=== PATIENT | male | born 1960 | race Caucasian/White ===

== ENCOUNTER → 2020-04-08 12:07 | Outpatient (CLI) | payer BC, SELFPAY ==
[2020-04-09 21:32] LABS: Covid-19 Nasal PCR Sendout Lex NOT DETECTED
== END ==
PROVIDERS: PCP Family Medicine; Visit Provider Family Medicine
DX: Z03.818 Encounter for observation for suspected exposure to other biological agents ruled out (principal)
CPT/HCPCS: U0004

== ENCOUNTER → 2021-03-22 15:00 | Outpatient (POV) | payer BC, SELFPAY | PROVIDERS: Visit Provider Dermatology | DX: Z00.00 Encounter for general adult medical examination without abnormal findings (principal) ==

== ENCOUNTER → 2021-05-31 10:05 | Outpatient (POV) | payer BC, SELFPAY | PROVIDERS: Visit Provider Dermatology | DX: Z00.00 Encounter for general adult medical examination without abnormal findings (principal) ==

== ENCOUNTER → 2021-08-18 08:49 | Outpatient (CLI) | payer BC, SELFPAY | PROVIDERS: PCP Family Medicine; Visit Provider Nurse Practitioner | DX: Z20.822 Contact with and (suspected) exposure to COVID-19 (principal) | CPT/HCPCS: C9803; U0003; U0005 ==

== ENCOUNTER → 2022-01-18 14:19 | Outpatient (CLI) | payer BC, SELFPAY | PROVIDERS: Visit Provider Surgery | DX: Z01.812 Encounter for preprocedural laboratory examination (principal); Z11.52 Encounter for screening for COVID-19; Z12.11 Encounter for screening for malignant neoplasm of colon | CPT/HCPCS: C9803; U0003; U0005 ==

== ENCOUNTER 2022-01-20 07:27 | Day surgery (SDC) | payer BC, SELFPAY ==
[2022-01-18 10:41] VITALS: BMI 35.5
[2022-01-20 07:43] VITALS: BP 132/83; PULSE 78; RESP 16; TEMP 36.6; O2SAT 98
--- NOTE | 2022-01-20 09:12 | P.PN_ITS ---
[facility] Anesthesia Checklist - Patient Identification Patient Identification: Arm Band, Verbal (Name & ) - Structural Data Admitted From: Home Planned Operative Procedure/s: Colonoscopy Consent for Planned Operative Procedure(s) Verified: Yes Verified Documents: Surgical Consent - NPO Status Verified Time NPO: 03:00 - Airway Assessment C-Spine Mobility Assessed: Yes TMJ Mobility Assessed: Yes Dentition: Good Dentition - Neurological Assessment Level of Consciousness: Awake, Alert, Appropriate - Anesthesia Plan Anesthesia Risk discussed: Yes ASA Class: II Anesthesia Type: MAC [facility] History I have reviewed the patient's past medical history: Yes Medical History: Reports:: Cancer (skin), Diabetes Mellitus Type 2 Denies:: Diabetes Mellitus Type 1, Internal Pacemaker, MRSA, Seizures *Have you ever received a pneumonia vaccine?: Yes *Have you received a flu vaccine this season?: Yes Anesthesia experience/problems:: none Laterality Cases: Bilateral: Tonsillectomy Other Surgeries: Yes: Other. No: Pacemaker Amputation: No Fractures: No - *Social History Last grade of school completed: Some college Smoking Status: Never smoker Alcohol Intake: current Alcohol Intake Frequency:: a few times a month Substance Use Type: denies use *Occupational Status:: employed Housing: house Household Members: spouse *Travel in the last 8 weeks: None Family Hx:: Hyperlipidemia, Hypertension
[2022-01-20 09:47] VITALS: O2SAT 98
--- NOTE | 2022-01-20 10:21 | HMH.SCOPE ---
- Procedure: Date: 01/20/22 Patient Date of :: 1960 Procedure Performed:: Total colonoscopy to terminal ileum with biopsy Indications:: Patient is a 61-year-old male. He underwent screening colonoscopy on 08/22/2011 and had hyper[address] polyp. Dr. Ellsworth performed colonoscopy on 10/30/2016 and he had a hyperplastic polyp as well as tubular adenoma x2. 5-year colonoscopy was recommended. Performing Provider:: Shashi Estes MD Referring Provider:: Hakan Rivera MD Sedation:: MAC sedation Procedure:: Patient was taken to endoscopy procedure room. He was positioned in lateral decubitus position. Adequate intravenous sedation was achieved with anesthesia titration of propofol. Variable stiffness Olympus colonoscope was inserted via the anus. Is advanced to the cecum. Ileocecal valve and appendiceal orifice were clearly identified. Colonic duration was decent but there was particulate liquid stool throughout the colon. Irrigation and suctioning was performed. Colonoscope was advanced into the terminal ileum. There is a minor area of hypertrophic mucosa which was biopsied. Likely inconsequential. Colonoscope was slowly withdrawn through the colon with careful surveillance. There were no notable polyps. He did have sigmoid diverticulosis. Retroflexion within the rectum revealed some prolapsing nonbleeding internal hemorrhoids. Colonoscope was withdrawn. Findings:: Terminal ileum with some minor hypertrophic mucosa Sigmoid diverticulosis Minimal prolapsing internal hemorrhoids Recommendations:: Likely repeat colonoscopy 5 years given his prior history of adenomatous polyps Complications:: None Estimated blood obtained (mL): 1
[2022-01-20 10:25] VITALS: BP 137/93; PULSE 83; RESP 16; TEMP 36.3; O2SAT 94
[2022-01-20 10:35] VITALS: BP 126/72; PULSE 87; RESP 18; O2SAT 95
[2022-01-20 10:45] VITALS: BP 138/77; PULSE 86; RESP 16; O2SAT 97
[2022-01-20 10:57] VITALS: BP 127/89; PULSE 78; RESP 16; TEMP 36.3; O2SAT 94
[2022-07-06 10:59] LABS: POC Glucose,Bedside 129 (70-110)
== END 2022-01-20 10:57 | disposition home or self-care (01) ==
LOC: OUTP 07:28
PROVIDERS: PCP Family Medicine; Visit Provider Surgery
PROC: 0DJD8ZZ Inspection of Lower Intestinal Tract, Via Natural or Artificial Opening Endoscopic (ICD-10-PCS; CPT 45380; principal; 2022-01-20 08:30)
DX: Z12.11 Encounter for screening for malignant neoplasm of colon (principal); K57.30 Diverticulosis of large intestine without perforation or abscess without bleeding; K63.89 Other specified diseases of intestine; K64.9 Unspecified hemorrhoids; Z86.010 Personal history of colon polyps; E11.9 Type 2 diabetes mellitus without complications; Z85.828 Personal history of other malignant neoplasm of skin; Z82.49 Family history of ischemic heart disease and other diseases of the circulatory system; Z83.438 Family history of other disorder of lipoprotein metabolism and other lipidemia; Z79.84 Long term (current) use of oral hypoglycemic drugs; Z79.899 Other long term (current) drug therapy
CPT/HCPCS: 45380; 82962

== ENCOUNTER → 2022-05-22 07:22 | Outpatient (CLI) | payer SELFPAY ==
--- NOTE | 2022-05-22 07:27 | CT_ITS ---
FINAL REPORT CLINICAL HISTORY: family hx of CAD, screening FINDINGS: CT CORONARY CALCIUM SCORE WITHOUT TECHNIQUE: Thin-section axial images were obtained through the heart and coronary arteries per CT coronary calcium score protocol. This study was performed with techniques to keep radiation doses as low as reasonably achievable, (ALARA). Individualized dose reduction techniques using automated exposure control or adjustment of mA and/or kV according to the patient's size were employed. FINDINGS: On the axial images, there is calcification noted in the left coronary artery. This gives a coronary artery calcium score of 12 based on the Agatston scale. This patient has coronary artery score places them within the 13th percentile based on age and gender. The heart size is normal. There is no pleural or pericardial effusion. Limited evaluation of the lungs revealed no suspicious nodule. IMPRESSION: Coronary artery calcium score of 12 which places the patient within the 13th percentile based on age and gender. Reviewed, Interpreted and Dictated by Shashi Bennett III, MD Transcribed by Shania Alvarado Authenticated and [facility]
== END ==
PROVIDERS: PCP Family Medicine; Visit Provider Family Medicine
DX: Z13.6 Encounter for screening for cardiovascular disorders (principal)
CPT/HCPCS: 75571

== ENCOUNTER 2024-08-05 07:15 | Outpatient (CLI) | payer BC, SELFPAY ==
--- NOTE | 2024-08-05 07:21 | US_ITS ---
PROCEDURE INFORMATION: Exam: US Abdomen, Limited; Right Upper Quadrant Exam date and time: 08/05/2024 7:17 AM Age: 63 years old Clinical indication: Abnormal findings; Abnormal lab test; Elevated liver enzymes; Additional info: Elevated lfts TECHNIQUE: Imaging protocol: Real time ultrasound of the abdomen with image documentation. Limited exam focused on the right upper quadrant. COMPARISON: No relevant prior studies available. FINDINGS: Liver: There is a diffuse increase in hepatic parenchymal echogenicity, consistent with fatty infiltration. Gallbladder: Gallbladder wall 2.7 mm. No gallstones Biliary ducts: Common duct 3.8 mm No stones. No dilation. Pancreas: Visualized pancreas is unremarkable. Right kidney: Right kidney 12 cm. No hydronephrosis. Right renal cortex 2.1 cm. Nodule in the right kidney measures 2.25 x 1.36x 1.7 cm. Not clearly a cyst.. Portal venous: Hepatopetal flow in the portal vein IMPRESSION: Nodule in the right kidney measures 2.25 x 1.36x 1.7 cm. Not clearly a cyst.. Recommend MR without and with contrast or CT without and with contrast. MR is preferred for masses under 1.5 cm.
== END 2024-08-05 23:59 | disposition home or self-care (01) ==
PROVIDERS: PCP Family Medicine; Visit Provider Family Medicine
DX: R79.89 Other specified abnormal findings of blood chemistry (principal)
CPT/HCPCS: 76705

== ENCOUNTER 2024-08-22 07:27 | Outpatient (CLI) | payer BC, SELFPAY ==
--- NOTE | 2024-08-22 07:43 | MR_ITS ---
FINAL REPORT CLINICAL HISTORY: ABNORMAL US OF KIDNEY. COMPARISON: None FINDINGS: Multiplanar MR imaging of the abdomen was performed without and with contrast. An MRCP was performed, using three-dimensional images which were obtained and reviewed. Images of the liver reveal no evidence of mass. There is no evidence of biliary ductal dilatation. The gallbladder has an unremarkable appearance. The kidneys are unremarkable in appearance without evidence of mass, hydronephrosis, or perinephric abnormality. The adrenal glands are unremarkable in appearance. No abnormal fluid collection is seen. No abnormal contrast enhancement is seen on the postcontrast images. IMPRESSION: No mass or abnormal contrast enhancement identified, specifically no evidence of renal mass, hydronephrosis, or perinephric abnormality was identified. Reviewed, Interpreted and Dictated by Shashi Bennett III, MD Transcribed by Deysi Gale Authenticated and [facility]
[2024-08-22 07:52] LABS: Blood Urea Nitrogen 15 mg/dl (9-20); Estimated Glomerular Filt Rate 97 ml/min (>60); GFR (African American) 118 ML/MIN (>60)
[2024-08-22] MEDS: SODIUM CHLORIDE 0.9% 50ML BAG 25 ML IV (10:17)
[2024-08-22] MEDS: SODIUM CHLORIDE 0.9% 10ML SYR (RAD ONLY) 10 ML IV (10:17)
[2024-08-22] MEDS: GADOTERIDOL INJ 10ML SYRINGE 3 ML IV (10:17)
[2024-08-22] MEDS: GADOTERIDOL INJ 20ML SYRINGE 20 ML IV (10:18)
== END 2024-08-22 23:59 | disposition home or self-care (01) ==
LOC: RAD 07:27
PROVIDERS: PCP Family Medicine; Visit Provider Family Medicine
DX: D41.01 Neoplasm of uncertain behavior of right kidney (principal)
CPT/HCPCS: 36415; 74183; 82565; 84520; A9576